=== PATIENT | male | born 1970 | race Two or more races ===

== ENCOUNTER 2020-11-02 14:14 | Emergency (ER) | payer MEDICAID, OTHER ==
[~2020-11-02] VITALS: Ht 167.6 cm; Wt 81.6 kg
[2020-11-02] MEDS ORDERED: ETOMIDATE (2MG/ML) 20ML VIAL IV ONE (16:15)
[2020-11-02] MEDS ORDERED: SUCCINYLCHOLINE CHLORIDE 20 MG/ML 10ML VIAL IV ONE (16:15)
[2020-11-02] MEDS ORDERED: PROPOFOL 100 ML IV ONE (16:23)
[2020-11-02] MEDS ORDERED: PROPOFOL 100 ML IV SCH ×3 (16:30→17:00)
[2020-11-02] MEDS ORDERED: DexAMETHasone SOD PHOS 10MG/1ML VIAL INJ IV ONE (16:30)
[2020-11-02 16:40] LABS: Alanine Aminotransferase 29 U/L (16-61); Albumin 3.8 g/dL (3.4-5.0); Anion Gap 7 (5-15); Aspartate Aminotransferase 14 U/L (15-37); Blood Urea Nitrogen 12 mg/dL (7-18); Calcium 9.3 mg/dL (8.5-10.1); Carbon Dioxide 25 mmol/L (21-32); Chloride 108 mmol/L (98-107); GFR African American 142 mL/min; GFR Non-African American 117 mL/min; Glucose 113 mg/dL (74-106); Magnesium 2.1 mg/dL (1.6-2.6); Potassium 3.6 mmol/L (3.5-5.1); Sodium 140 mmol/L (136-145)
[2020-11-02 16:45] LABS: Alkaline Phosphatase 75 U/L (45-117); Bilirubin, Total 0.7 mg/dL (0.2-1.0); Total Protein 8.1 g/dL (6.4-8.2)
[2020-11-02 17:25] VITALS: BP 148/92
[2020-11-02 17:29] LABS: Basophils # (auto) 0 10 ^3/uL (0-0.2); Basophils % (auto) 0.2 % (0.0-2.0); Eosinophils # (auto) 0 10 ^3/uL (0-0.8); Eosinophils % (auto) 0.1 % (0.0-7.0); Lymphocytes # (auto) 0.8 10 ^3/uL (0.4-5.4); Lymphocytes % (auto) 7.6 % (10.0-50.0); Mean Corpuscular Hgb Conc. 35.4 g/dL (32.0-36.0); Mean Corpuscular Volume 87.6 fL (80.0-100.0); Monocytes # (auto) 0.5 10 ^3/uL (0-1.3); Monocytes % (auto) 5.4 % (0.0-12.0); Neutrophils # (auto) 8.7 10 ^3/uL (1.6-8.6); Neutrophils % (auto) 86.7 % (37.0-80.0); Nucleated Red Blood Cells % 0.1 %; Platelet Count (auto) 211 10^3/uL (140-450); Red Blood Cells 5.48 10^6/uL (4.5-5.90); Red Cell Distribution Width 14.1 % (11.8-14.3)
[2020-11-02 18:15] LABS: Urine Bacteria NONE SEEN /hpf (None Seen); Urine Blood Negative /uL (Negative); Urine Hyaline Cast FEW /lpf (0 - 2); Urine Mucus FEW (None Seen); Urine Specific Gravity 1.016 (1.001-1.035); Urine WBC 3 /hpf (0 - 3)
[2020-11-02 18:22] LABS: Amphetamine Screen, Urine NEGATIVE (NEGATIVE); Barbiturate Scree,Urine NEGATIVE (NEGATIVE); Benzodiazephine Screen, Urine NEGATIVE (NEGATIVE); Cannabinoid Screen, Urine POSITIVE (NEGATIVE); Cocaine Screen, Urine NEGATIVE (NEGATIVE); Opiate Scree,Urine NEGATIVE (NEGATIVE); Phencyclidine Screen, Urine NEGATIVE (NEGATIVE)
== END 2020-11-02 17:50 | disposition hospice, inpatient (51) ==
LOC: ER 14:14 → EDBD 14:14 → ER 17:50
DX: R41.82 Altered mental status, unspecified (principal); R00.1 Bradycardia, unspecified; R90.0 Intracranial space-occupying lesion found on diagnostic imaging of central nervous system; I16.9 Hypertensive crisis, unspecified
CPT/HCPCS: 31500; 36415; 36556; 36600; 70450; 71045; 80053; 80307; 81001; 82728; 82805; 83735; 84484; 85025; 85049; 85379; 86141; 87070; 87077; 87186; 87205; 93005; 96374; 99291; J0330; J1100; J2704; 94002